=== PATIENT | male | born 1995 | race Caucasian/White ===

== ENCOUNTER 2017-08-06 20:05 | Emergency (ER) | payer BC ==
[~2017-08-06] VITALS: Ht 188 cm; Wt 107.0 kg
[2017-08-06 20:31] VITALS: TEMP 36.7; Ht 188 cm; Wt 107.0 kg
[2017-08-06] MEDS ORDERED: PROPARACAINE HCL 0.5% OP SOLN 15 ML BTL OP STA (20:41)
[2017-08-06] MEDS ORDERED: LEVO5TAB2 PO (21:27)
[2017-08-06] MEDS ORDERED: AZEL30SP NAE (21:27)
[2017-08-06] MEDS ORDERED: ADAP0.054 TOP (21:27)
[2017-08-06] MEDS ORDERED: MINO100C22 PO (21:27)
[2017-08-06] MEDS ORDERED: CLIN1GEL5 TOP (21:27)
--- NOTE | 2017-08-06 21:36 | EMERGENCY ROOM VISIT NOTE ---
History First contact with patient: 20:27 Chief Complaint: EYE ASSESSMENT Stated Complaint: STRUCK IN EYE History of Present Illness The patient is a 22 year old male who presents to the Emergency Room with complaints of trauma to the right eye that occurred prior to arrival. The patient was playing racquetball. He was hit with a ball directly into the right eye. He does wear contact lenses. He thinks that his contact fell out resulting from the injury. He reports blurry vision and seeing halos around lights in the right eye. He feels some mild pressure. He denies any foreign body sensation. The patient put in a new contact prior to arrival. He denies any sensitivity to light. Review of Systems 6 system review negative. Please see pertinent positives in the history of present illness section. Past Medical/Surgical History Otherwise healthy Social History Smoking Status: Never Smoker Housing Status: lives with roommate Occupation Status: [employer] student Current/Historical Medications Scheduled Adapalene-Benzoyl Peroxide (Epiduo Forte 0.3-2.5 %), 1 APPLN TOP DAILY Azelastine Hcl-Fluticasone Pro (Dymista), 1 SPRY DEB BID Clindamycin Phosphate (Topical (Clindamycin Phosphate), 1 APPLN TOP DAILY Levocetirizine Dihydrochloride (Xyzal), 5 MG PO DAILY Minocycline (Minocin), 100 MG PO DAILY Physical Exam Vital Signs Date Time Temp Pulse Resp B/P (MAP) Pulse Ox O2 Delivery O2 Flow Rate FiO2 08/06/17 22:25 81 16 171/98 100 Room Air 08/06/17 20:31 36.7 86 18 182/124 100 Room Air Right Eye Acuity: 20/40 Left Eye Acuity: 20/20 Physical Exam VITALS: Vitals are noted on the nurse's note and reviewed by myself. Vital signs stable. GENERAL: 22-year-old male, in no acute distress, nondiaphoretic, well-developed well-nourished. SKIN: Intact HEAD: Mild edema inferior to the right eye. EYES: Pupils equal round and reactive to light and accommodation. Conjunctiva of the right eye is mildly injected in the medial corner. Small subconjunctival hemorrhage noted in this area. Insert Slit Lamp Exam Slit Lamp Examination was performed of the right eye(s). Alcaine drops were applied to the affected eye(s) for proper anesthetization. The affected eye(s) were stained with Fluorescein stain to precipitate adequate visualization of any conjunctival/scleral excoriations or ulcers. The patients face was comfortably rested on the chin guard of the slit lamp apparatus. The lights were dimmed and the affected eye(s) were thoroughly examined under microscopy using the blue light. Slight, superficial uptake was present At approximately 6:00. Additionally, the eye(s) were examined under microscopy using the regular light. Close examination revealed no abnormalities. No hyphema noted. Negative Perla sign.. Patient tolerated the procedure well and no complications were met. Insert Optic Tonometry Alcaine drops were applied to the eyes bilaterally for adequate anesthetization. A clean tip protector was applied to the Tonometer. The Tonometry pen was properly calibrated prior to attaining orbital pressures. The pressures in the LEFT eye were found to be 11, 12, and 12. The pressures in the RIGHT eye were found to be 11, 12, and 11. Patient tolerated the procedure well and no complications were met. MUSCULOSKELETAL: No muscle atrophy, erythema, or edema noted. Strength 5/5 throughout. NEURO: Patient was alert and oriented to person place and time. Normal sensation to touch. No focal neurological deficits. Medical Decision & Procedures Medications Administered Medications (Trade) Dose Ordered Sig/Roberto Route Start Time Stop Time Status Last Admin Dose Admin Ciprofloxacin HCl (Ciloxan 0.3% Op Oint) 1 appln NOW ONCE OP 08/06/17 22:00 08/06/17 22:01 DC 08/06/17 22:24 1 APPLN ED Course The patient was seen and examined Case was discussed with ophthalmology Ciloxan ophthalmic ointment was applied Discharge instructions were reviewed, and he was discharged in good condition Medical Decision Differential diagnosis: Globe rupture, increased pressure, hyphema, corneal abrasion, laceration, foreign body This patient is a 22-year-old male that presents emergency department with trauma to the right eye. He was hit in the eye with a racquetball. On exam, he had some mild edema inferiorly to the eye. He had some mild injection to the eye. Slit lamp exam revealed no signs of hyphema. Fluorescent stain was performed. Negative Perla sign. There is a superficial corneal abrasion at 6: 00. No hyphema was noted. Pressures were appropriate. The patient wears contact lenses. Case was discussed with ophthalmology due to the fact that he had some blurred vision. It was felt the patient was likely stable to be discharged home. He will be started on antibiotic ophthalmic ointment for the corneal abrasion. He will avoid wearing his contact lenses. He will follow up with ophthalmology in the morning, and agrees to return here with any new or worsening symptoms. Consults Consulting Physician: Dr. Abad Impression Primary Impression: Right eye trauma Departure Information Dispostion Home / Self-Care Condition GOOD Referrals No Doctor, Assigned (PCP) Isiah Abad D.Lyric. Patient Instructions My [facility] Additional Instructions You had been evaluated in the emergency department for an injury to the right eye. Please use Ciloxan ophthalmic ointment every 6 hours for the next [address] Abad in the morning for a follow-up appointment. Do not wear your contacts until okay with the eye doctor Do not hesitate to return to the emergency department with any new, worsening or concerning symptoms
[2017-08-06] MEDS ORDERED: CIPROFLOXACIN HCL 3.5 GM TUBE OP ONE (22:00)
[2017-08-06 22:25] VITALS: BP 171/98; PULSE 81; O2SAT 100
== END 2017-08-06 22:28 | disposition home or self-care (01) ==
LOC: C.EDB 20:06 → C.EDD 22:28
DX: S05.01XA Injury of conjunctiva and corneal abrasion without foreign body, right eye, initial encounter (principal); W21.09XA Struck by other hit or thrown ball, initial encounter; Y93.73 Activity, racquet and hand sports